=== PATIENT | female | born 1990 | race Hispanic/Latino ===

== ENCOUNTER 2022-06-09 01:11 | Emergency (ER) | payer OTHER, SELFPAY ==
[2022-06-09 01:26] VITALS: BP 95/60; PULSE 84; RESP 18; TEMP 36.8; O2SAT 99; BMI 22.6
[2022-06-09] MEDS: ONDANSETRON 4 MG/2 ML INJ IV (01:51)
[2022-06-09] MEDS: SODIUM CHLORIDE 0.9% 1,000 ML 1000 ML IV ×2 (01:51→02:42)
--- NOTE | 2022-06-09 02:35 | ED.NAVMDI ---
HPI - Nausea/Vomiting/Diarrhea General Chief complaint: Nausea/Vomiting/Diarrhea Stated complaint: 7 weeks and cant keep food down Covid+ Time Seen by Provider: 06/09/22 01:56 Source: patient Mode of arrival: Ambulatory History of Present Illness HPI Narrative: 31-year-old at 7 weeks by LMP with moderate nausea and vomiting related to began noting a cough yesterday tested positive for COVID today with increasing nausea and unable to keep anything down. She did have a couple doses of Zofran initially that was moderately effective but has run out of this. She is becoming more dehydrated and looking for help and reassurance. She has not had any diarrhea she has a low-grade headache she is coughing she has a low-grade fever no significant abdominal pain no vaginal bleeding or spotting. Related Data Previous Rx's Medication Instructions Recorded ondansetron 4 mg disintegrating 4 mg PO Q8H #30 tabs 06/09/22 tablet Allergies Allergy/AdvReac Type Severity Reaction Status Date / Time No Known Drug Allergies Allergy Verified 06/09/22 01:51 Review of Systems Review of Systems Narrative: Remainder of complete review of systems is otherwise unremarkable except for that included in the HPI. Patient History Medical History (Updated 06/09/22 @ 04:35 by Karen Gallardo MD) COVID-19 Social History Smoking Status: Never smoker Smoking Status: Never smoker Substance Use Type: does not use Exam Initial Vital Signs Initial Vital Signs: Vital Signs Temperature 98.3 F 06/09/22 01:26 Pulse Rate 84 06/09/22 01:26 Respiratory Rate 18 06/09/22 01:26 Blood Pressure 95/60 06/09/22 01:26 Pulse Oximetry 99 06/09/22 01:26 Oxygen Delivery Method 06/09/22 01:26 General: Healthy appearing, in no acute distress. Able to give a complete and coherent history. Well-nourished well-developed HEENT: Moist mucous membranes, normal sclera with reactive pupils, Respiratory: Lungs are clear to auscultation, no wheezing no rales no rhonchi. Full and symmetrical air movement Cardiac: Regular rate and rhythm no murmurs no bruits Abdomen: Soft, nontender, good bowel tones, no flank pain Skin: Warm and dry, no rashes Neurologic: Grossly neurologically intact with no obvious asymmetries or abnormalities Extremities: No trauma, well perfused Psych: Cooperative, appropriate insight and affect Bedside ultrasound Viable intrauterine fetus with heart rate in the 160 range. [place]-rump length measuring 7 weeks 5 days Course Orders Ordered: ED Orders 06/09/22 01:35 Beta HCG, Quant [HCG Quantitative /Beta subunit] Stat Complete Blood Count AUTO DIFF Stat Comprehensive Metabolic Panel Stat Thyroid Stimulating Hormone Stat Discontinued Medications Sodium Chloride (Normal Saline 0.9%) 1,000 mls @ 1,000 mls/hr IV BOLUS ONE Stop: 06/09/22 02:43 Last Infusion: 06/09/22 02:46 Dose: 0 mls/hr Documented By: Admin: 06/09/22 01:51 Dose: 1,000 mls/hr Documented By: RANJIT Sodium Chloride (Normal Saline 0.9%) 1,000 mls @ 1,000 mls/hr IV BOLUS ONE Stop: 06/09/22 03:11 Last Infusion: 06/09/22 03:52 Dose: 0 mls/hr Documented By: Admin: 06/09/22 02:42 Dose: 1,000 mls/hr Documented By: RANJIT Ondansetron HCl (Ondansetron 4 Mg/2 Ml Inj) 4 mg IV NOW ONE Stop: 06/09/22 01:45 Last Admin: 06/09/22 01:51 Dose: 4 mg Documented By: RANJIT Vital Signs Vital signs: Vital Signs - 8 hr 06/09/22 01:26 Temperature 98.3 F Pulse Rate 84 Respiratory Rate 18 Blood Pressure 95/60 Pulse Oximetry 99 Oxygen Delivery Method Room Air MDM - Nausea/Vomiting/Diarrhea Lab Data Result diagrams: 06/09/22 01:35 06/09/22 01:35 Labs: Lab Results 06/09/22 06/09/22 06/09/22 Range/Units 01:35 01:35 01:35 WBC 6.0 (4.5-11.0) X10^3/uL RBC 4.22 (4.0-5.2) X10^6/uL Hgb 12.5 (12.0-16.0) g/dL Hct 36.7 (36-46) % MCV 87.0 (80-100) fL MCH 29.7 (26-34) PG MCHC 34.2 (30-36) % RDW 13.3 (11.6-14.8) % Plt Count 235 (150-400) X10^3/uL Neut % (Auto) 69.7 (50-75) % Lymph % (Auto) 17.0 L (25-40) % [place] % (Auto) 12.8 (3-14) % Eos % (Auto) 0.1 L (2-4) % Baso % (Auto) 0.4 (0-2) % Neut # (Auto) 4200 (6762-3659) /uL Lymph # (Auto) 1000 L (7324-3175) /uL [place] # (Auto) 800 (0-900) /uL Eos # (Auto) 0 (0-450) /uL Baso # (Auto) 0 (0-100) /uL Sodium 135 L (137-145) mmol/L Potassium 3.8 (3.4-5.1) mmol/L Chloride 101 (98-107) mmol/L Carbon Dioxide 26 (22-32) mmol/L BUN 6 L (7-17) mg/dL Creatinine 0.50 L (0.52-1.04) mg/dL Estimated GFR > 60 (>60) mL/min BUN/Creatinine Ratio 12.0 (6-22) Glucose 87 (70-100) mg/dL Calcium 9.0 (8.4-10.2) mg/dL Total Bilirubin 0.5 (0.2-1.3) mg/dL AST 32 (14-36) IU/L ALT 20 (<35) IU/L Alkaline Phosphatase 45 (38-126) U/L Total Protein 7.2 (6.3-8.2) g/dL Albumin 4.2 (3.5-5.0) g/dL Globulin 3.0 (1.7-4.1) g/dL Albumin/Globulin Ratio 1.4 (1.0-2.8) TSH 0.301 L (0.47-4.68) uIU/mL HCG, Quant 357860 mIU/mL MDM Narrative Medical decision making narrative: 31-year-old at 7 weeks of with increasing nausea and recently diagnosed COVID infection. She is given 2 L of fluid and IV Zofran with nausea significantly improved. Bedside ultrasound confirms viable intrauterine fetus. She is on day 2 of her COVID symptoms, she is vaccinated given the fact that she is in her early she would be an appropriate candidate for monoclonal antibodies. She has a mild cough, sats are 99% on room air and an otherwise benign clinical exam. Discharge Plan Departure Patient Disposition: Home Clinical Impression: COVID-19 Qualifiers: Weeks of gestation: less than 8 weeks Qualified Code(s): Z3A.01 - Less than 8 weeks gestation of Nausea & vomiting Qualifiers: Vomiting type: unspecified Qualified Code(s): R11.2 - Nausea with vomiting, unspecified Instructions: DI for -- Discomforts and Remedies, Nausea and Vomiting-Adult, DI for COVID-19 (Suspected or Confirmed ) Activity Restrictions/Additional Instructions: Thank you for coming in today You were given 2 L of saline and IV Zofran which seemed to help significantly with nausea. I have given you a prescription for additional Zofran to use to help with nausea. You are minimally symptomatic with your COVID however given that you are in early you would be a candidate for monoclonal antibodies to make sure that the overall course of your disease stays mild. If you find that you are getting worse or develop any new symptoms, please feel free to return to the emergency department for further evaluation. Prescriptions: New ondansetron 4 mg tablet,disintegrating 4 mg PO Q8H Qty: 30 0RF
[2022-06-09 02:42] LABS: Add Manual Diff / Slide Review NO; Basophils Absolute Auto 0 /uL (0-100); Basophils Percent Auto 0.4 % (0-2); Eosinophils Absolute Auto 0 /uL (0-450); Eosinophils Percent Auto 0.1 % (2-4); Hematocrit 36.7 % (36-46); Hemoglobin 12.5 g/dL (12.0-16.0); Lymphocytes Absolute Auto 1000 /uL (1100-4500); Mean Corpuscular HGB Conc 34.2 % (30-36); Mean Corpuscular Hemoglobin 29.7 PG (26-34); Monocytes Absolute Auto 800 /uL (0-900); Monocytes Percent Auto 12.8 % (3-14); Neutrophils Absolute Auto 4200 /uL (1500-7000); Neutrophils Percent Auto 69.7 % (50-75); Platelet Count 235 X10^3/uL (150-400); Red Blood Cell Count 4.22 X10^6/uL (4.0-5.2); Red Cell Distribution Width 13.3 % (11.6-14.8)
[2022-06-09 02:44] LABS: Alanine Aminotransferase 20 IU/L (<35); Albumin 4.2 g/dL (3.5-5.0); Albumin Globulin Ratio 1.4 (1.0-2.8); Alkaline Phosphatase 45 U/L (38-126); Aspartate Aminotransferase 32 IU/L (14-36); Bilirubin Total 0.5 mg/dL (0.2-1.3); Blood Urea Nitrogen 6 mg/dL (7-17); Carbon Dioxide 26 mmol/L (22-32); Chloride 101 mmol/L (98-107); Estimated Glomerular Filt Rate > 60 mL/min (>60); Glucose 87 mg/dL (70-100); HEMOLYSIS < 15 (0-50); Potassium 3.8 mmol/L (3.4-5.1); Sodium 135 mmol/L (137-145); Total Protein 7.2 g/dL (6.3-8.2)
[2022-06-09 03:03] LABS: HCG Quantitative /Beta subunit 221020 mIU/mL
[2022-06-09 03:15] LABS: Thyroid Stimulating Hormone 0.301 uIU/mL (0.47-4.68)
[2022-06-09 04:43] VITALS: BP 99/63; PULSE 92; RESP 16; O2SAT 100
[2022-06-09] MEDS: ONDANSETRON 4 MG ODT PREPACK 1 BOTTLE MISC (04:47)
== END 2022-06-09 04:55 | disposition home or self-care (01) ==
PROVIDERS: Emergency Provider Emergency Medicine
DX: U07.1 COVID-19 (principal); R11.2 Nausea with vomiting, unspecified; Z3A.01 Less than 8 weeks gestation of pregnancy
CPT/HCPCS: 36415; 80053; 84443; 84702; 85025; 96361; 96374; 99284; J2405